=== PATIENT | male | born 1965 | race American Indian/Alaskan Native ===

== ENCOUNTER 2019-08-20 17:32 | Emergency (ER) | payer MEDICARE ==
[2019-08-20 17:48] VITALS: BP 145/79
[2019-08-20 18:49] LABS: Basophils % (Auto) 0.4 % (0.0-1.8); Eosinophils # (Auto) 0.1 K/mm3 (0.0-0.4); Eosinophils % (Auto) 0.5 % (0.0-4.3); Hematocrit 37.5 % (35.5-45.6); Hemoglobin 12.7 gm/dl (11.8-15.2); Lymphocytes % (Auto) 15.6 % (13.4-35.0); Mean Corpuscular HGB Conc 34 % (32-34); Mean Corpuscular Volume 86 fl (84-94); Monocytes # (Auto) 1.1 K/mm3 (0.0-0.8); Monocytes % (Auto) 8.4 % (0.0-7.3); Platelet Count 448 K/mm3 (140-440); Red Blood Count 4.34 M/mm3 (3.65-5.03); Red Cell Distribution Width 14.6 % (13.2-15.2)
[2019-08-20 19:09] LABS: BUN/Creatinine Ratio 21; Blood Urea Nitrogen 21 mg/dL (9-20); Calcium 8.9 mg/dL (8.4-10.2); Hemolysis Index 1
== END 2019-08-20 21:00 | disposition left against medical advice (07) ==
LOC: ED 17:32
DX: F20.9 Schizophrenia, unspecified (principal); Z53.21 Procedure and treatment not carried out due to patient leaving prior to being seen by health care provider
CPT/HCPCS: 36415; 80048; 80320; 85025; G0480

== ENCOUNTER 2019-08-21 03:45 | Emergency (ER) | payer MEDICARE ==
[2019-08-21] MEDS ORDERED: ZIPRASIDONE MESYLATE 20 MG VIAL IM ONE ×2 (03:50→04:01)
[2019-08-21] MEDS ORDERED: LORazepam 2 MG/ML VIAL ONE (04:00)
[2019-08-21] MEDS ORDERED: LORazepam 2 MG/ML VIAL IV ONE (04:28)
[2019-08-21 05:33] LABS: Basophils % (Auto) 0.4 % (0.0-1.8); Eosinophils # (Auto) 0.1 K/mm3 (0.0-0.4); Eosinophils % (Auto) 0.9 % (0.0-4.3); Hematocrit 35.1 % (35.5-45.6); Lymphocytes # (Auto) 1.5 K/mm3 (1.2-5.4); Lymphocytes % (Auto) 15.6 % (13.4-35.0); Mean Corpuscular HGB Conc 34 % (32-34); Mean Corpuscular Volume 86 fl (84-94); Monocytes # (Auto) 0.6 K/mm3 (0.0-0.8); Monocytes % (Auto) 6.5 % (0.0-7.3); Platelet Count 392 K/mm3 (140-440); Red Blood Count 4.06 M/mm3 (3.65-5.03); Red Cell Distribution Width 14.9 % (13.2-15.2)
--- NOTE | 2019-08-21 05:43 | Emergency Department Report ---
<MARYANN HOFFMAN - Last Filed: 08/21/19 05:44> ED Psych HPI - General Chief Complaint: Altered Mental Status Stated Complaint: MANIC/BIPOLAR Time Seen by Provider: 08/21/19 04:00 Source: police Mode of arrival: Stretcher - History of Present Illness Initial Comments: 54 yo M w/ hx of schizophrenia presents to ED via EMS and PD. Patient was picked up from his sister's home. Called [phone] b/c he broke the window at her home. Pt is verbally aggressive, threatening, yelling at staff. Unable to get any history from pt. Pt requires medical restraints. Pt was brought in yesterday by his sister. It was reported at triage that pt has been off of his psych meds for several days. -: unknown History of same: Yes Improves With: medication Worsens With: other (med noncompliance) Treatments Prior to Arrival: none - Related Data Previous Rx's Medication Instructions Recorded Last Taken Type Nitrofurantoin [place]/M-Cryst 100 mg PO Q12HR #13 capsule 08/21/19 Unknown Rx [Macrobid CAP] Allergies Allergy/AdvReac Type Severity Reaction Status Date / Time No Known Allergies Allergy Verified 08/21/19 04:09 ED Review of Systems Comment: Unobtainable due to pts medical conditions ED Past Medical Hx - Past Medical History Previous Medical History?: Yes Hx Psychiatric Treatment: Yes (Schizophrenia) Additional medical history: unable to obtain further info, due to current mental status - Surgical History Past Surgical History?: Yes Additional Surgical History: unable to obtain info due to current mental status - Social History Smoking Status: Unknown if ever smoked - Medications Home Medications: Home Medications Medication Instructions Recorded Confirmed Last Taken Type Nitrofurantoin [place]/M-Cryst 100 mg PO Q12HR #13 capsule 08/21/19 08/22/19 Unknown Rx [Macrobid CAP] ED Physical Exam - General Limitations: Altered Mental Status, Physical Limitation General appearance: alert - Head Head exam: Present: atraumatic, normocephalic - Eye Eye exam: Present: normal appearance - ENT ENT exam: Present: mucous membranes moist - Neck Neck exam: Present: normal inspection - Respiratory Respiratory exam: Present: normal lung sounds bilaterally. Absent: respiratory distress - Cardiovascular Cardiovascular Exam: Present: normal rhythm, tachycardia - GI/Abdominal GI/Abdominal exam: Present: soft. Absent: distended - Extremities Exam Extremities exam: Present: other (bilateral lower extremity amputations) - Neurological Exam Neurological exam: Present: alert, other (moves all extremities) - Psychiatric Psychiatric exam: Present: agitated, manic - Skin Skin exam: Present: warm, dry, intact, normal color ED Medical Decision Making - Lab Data Result diagrams: 08/21/19 05:03 ED Disposition Clinical Impression: Psychosis, Medical clearance for psychiatric admission Disposition: [id number] PSY HOSP/PSY UNIT Condition: Stable Additional Instructions: Take the antibiotics as directed. Cultures were sent, and results will be available in the next 3-5 days. Have a primary care doctor contact the medical records department to obtain culture results. Follow up with a medical physician within 7-10 days. Avoid strenuous heavy lifting, strenuous physical activities. Drink 4-6 cups of water per day. Return to emergency room right away with , worsened or different symptoms, or symptoms not present on the initial emergency room evaluation. Prescriptions: Nitrofurantoin [place]/M-Cryst [Macrobid CAP] 100 mg PO Q12HR #13 capsule Referrals: PRIMARY CARE, [Primary Care Provider] - 3-5 Days [facility] [Provider Group] - 3-5 Days [facility] [Provider Group] - 3-5 Days <CHRIS CARRERO - Last Filed: 08/26/19 21:25> ED Review of Systems ROS: Stated complaint: MANIC/BIPOLAR Other details as noted in HPI ED Course Vital Signs 08/21/19 08/21/19 08/21/19 05:21 08:00 12:08 Temperature 98.1 F 98.7 F 97.7 F Pulse Rate 128 H 98 H 105 H Respiratory 19 18 18 Rate Blood Pressure 104/65 107/73 124/83 [Left] O2 Sat by Pulse 97 98 95 Oximetry 08/21/19 08/21/19 16:28 20:57 Temperature 97.9 F Pulse Rate 115 H 106 H Respiratory 20 16 Rate Blood Pressure 122/91 131/84 [Left] O2 Sat by Pulse 98 98 Oximetry - Reevaluation(s) Reevaluation #1: 08/21/19 22:53 Patient really observed multiple times. The patient is not in any acute distress. Initial chemistry reviewed and appreciated. Repeat basic metabolic panel ordered. CK reviewed and appreciated. Patient given 3 L of IV fluid, CK decreased. Patient observed in the ER for hours without clinical decompensation. He has been accepted by the psychiatrist. He does not have an immediate medical contraindication to psychiatric admission, evaluation, consultation and placement at this time. ED Medical Decision Making - Lab Data Result diagrams: 08/21/19 05:03 08/21/19 18:01 Vital Signs 08/21/19 08/21/19 08/21/19 05:21 08:00 12:08 Temperature 98.1 F 98.7 F 97.7 F Pulse Rate 128 H 98 H 105 H Respiratory 19 18 18 Rate Blood Pressure 104/65 107/73 124/83 [Left] O2 Sat by Pulse 97 98 95 Oximetry 08/21/19 08/21/19 16:28 20:57 Temperature 97.9 F Pulse Rate 115 H 106 H Respiratory 20 16 Rate Blood Pressure 122/91 131/84 [Left] O2 Sat by Pulse 98 98 Oximetry Lab Results 08/21/19 08/21/19 08/21/19 Range/Units 05:03 05:03 05:03 WBC 9.8 (4.5-11.0) K/mm3 RBC 4.06 (3.65-5.03) M/mm3 Hgb 12.0 (11.8-15.2) gm/dl Hct 35.1 L (35.5-45.6) % MCV 86 (84-94) fl MCH 30 (28-32) pg MCHC 34 (32-34) % RDW 14.9 (13.2-15.2) % Plt Count 392 (140-440) K/mm3 Lymph % (Auto) 15.6 (13.4-35.0) % [place] % (Auto) 6.5 (0.0-7.3) % Eos % (Auto) 0.9 (0.0-4.3) % Baso % (Auto) 0.4 (0.0-1.8) % Lymph # 1.5 (1.2-5.4) K/mm3 [place] # 0.6 (0.0-0.8) K/mm3 Eos # 0.1 (0.0-0.4) K/mm3 Baso # 0.0 (0.0-0.1) K/mm3 Seg Neutrophils % 76.6 H (40.0-70.0) % Seg Neutrophils # 7.5 (1.8-7.7) K/mm3 Sodium 134 L (137-145) mmol/L Potassium 3.2 L (3.6-5.0) mmol/L Chloride 97.9 L (98-107) mmol/L Carbon Dioxide 17 L (22-30) mmol/L Anion Gap 22 mmol/L BUN 14 (9-20) mg/dL Creatinine 0.7 L (0.8-1.5) mg/dL Estimated GFR > 60 ml/min BUN/Creatinine Ratio 20 % Glucose 83 (75-100) mg/dL Calcium 8.6 (8.4-10.2) mg/dL Magnesium (1.7-2.3) mg/dL Total Creatine Kinase (55-170) units/L Urine Color (Yellow) Urine Turbidity (Clear) Urine pH (5.0-7.0) Ur Specific [place] (1.003-1.030) Urine Protein (Negative) mg/dL Urine Glucose (UA) (Negative) mg/dL Urine Ketones (Negative) mg/dL Urine Blood (Negative) Urine Nitrite (Negative) Urine Bilirubin (Negative) Urine Urobilinogen (<2.0) mg/dL Ur Leukocyte Esterase (Negative) Urine WBC (Auto) (0.0-6.0) /HPF Urine RBC (Auto) (0.0-6.0) /HPF U Epithel Cells (Auto) (0-13.0) /HPF Urine Bacteria (Auto) (Negative) /HPF Urine Mucus /HPF Salicylates < 0.3 L (2.8-20.0) mg/dL Urine Opiates Screen Urine Methadone Screen Acetaminophen (10.0-30.0) ug/mL Ur Barbiturates Screen Ur Phencyclidine Scrn Ur Amphetamines Screen U Benzodiazepines Scrn Urine Cocaine Screen U Marijuana (THC) Screen Drugs of Abuse Note Plasma/Serum Alcohol (0-0.07) % 08/21/19 08/21/19 08/21/19 Range/Units 05:03 05:03 16:18 WBC (4.5-11.0) K/mm3 RBC (3.65-5.03) M/mm3 Hgb (11.8-15.2) gm/dl Hct (35.5-45.6) % MCV (84-94) fl MCH (28-32) pg MCHC (32-34) % RDW (13.2-15.2) % Plt Count (140-440) K/mm3 Lymph % (Auto) (13.4-35.0) % [place] % (Auto) (0.0-7.3) % Eos % (Auto) (0.0-4.3) % Baso % (Auto) (0.0-1.8) % Lymph # (1.2-5.4) K/mm3 [place] # (0.0-0.8) K/mm3 Eos # (0.0-0.4) K/mm3 Baso # (0.0-0.1) K/mm3 Seg Neutrophils % (40.0-70.0) % Seg Neutrophils # (1.8-7.7) K/mm3 Sodium (137-145) mmol/L Potassium (3.6-5.0) mmol/L Chloride (98-107) mmol/L Carbon Dioxide (22-30) mmol/L Anion Gap mmol/L BUN (9-20) mg/dL Creatinine (0.8-1.5) mg/dL Estimated GFR ml/min BUN/Creatinine Ratio % Glucose (75-100) mg/dL Calcium (8.4-10.2) mg/dL Magnesium (1.7-2.3) mg/dL Total Creatine Kinase (55-170) units/L Urine Color Lina (Yellow) Urine Turbidity Cloudy (Clear) Urine pH 6.0 (5.0-7.0) Ur Specific [place] 1.019 (1.003-1.030) Urine Protein <15 mg/dl (Negative) mg/dL Urine Glucose (UA) Neg (Negative) mg/dL Urine Ketones 20 (Negative) mg/dL Urine Blood Mod (Negative) Urine Nitrite Neg (Negative) Urine Bilirubin Neg (Negative) Urine Urobilinogen 2.0 (<2.0) mg/dL Ur Leukocyte Esterase Neg (Negative) Urine WBC (Auto) 19.0 H (0.0-6.0) /HPF Urine RBC (Auto) 25.0 (0.0-6.0) /HPF U Epithel Cells (Auto) < 1.0 (0-13.0) /HPF Urine Bacteria (Auto) 3+ (Negative) /HPF Urine Mucus Few /HPF Salicylates (2.8-20.0) mg/dL Urine Opiates Screen Urine Methadone Screen Acetaminophen < 5.0 L (10.0-30.0) ug/mL Ur Barbiturates Screen Ur Phencyclidine Scrn Ur Amphetamines Screen U Benzodiazepines Scrn Urine Cocaine Screen U Marijuana (THC) Screen Drugs of Abuse Note Plasma/Serum Alcohol < 0.01 (0-0.07) % 08/21/19 08/21/19 08/21/19 Range/Units 16:18 18:01 21:55 WBC (4.5-11.0) K/mm3 RBC (3.65-5.03) M/mm3 Hgb (11.8-15.2) gm/dl Hct (35.5-45.6) % MCV (84-94) fl MCH (28-32) pg MCHC (32-34) % RDW (13.2-15.2) % Plt Count (140-440) K/mm3 Lymph % (Auto) (13.4-35.0) % [place] % (Auto) (0.0-7.3) % Eos % (Auto) (0.0-4.3) % Baso % (Auto) (0.0-1.8) % Lymph # (1.2-5.4) K/mm3 [place] # (0.0-0.8) K/mm3 Eos # (0.0-0.4) K/mm3 Baso # (0.0-0.1) K/mm3 Seg Neutrophils % (40.0-70.0) % Seg Neutrophils # (1.8-7.7) K/mm3 Sodium 133 L (137-145) mmol/L Potassium 3.8 (3.6-5.0) mmol/L Chloride 95.1 L (98-107) mmol/L Carbon Dioxide 22 (22-30) mmol/L Anion Gap 20 mmol/L BUN 16 (9-20) mg/dL Creatinine 0.8 (0.8-1.5) mg/dL Estimated GFR > 60 ml/min BUN/Creatinine Ratio 20 % Glucose 135 H (75-100) mg/dL Calcium 9.3 (8.4-10.2) mg/dL Magnesium 2.00 (1.7-2.3) mg/dL Total Creatine Kinase 3060 H 2340 H (55-170) units/L Urine Color (Yellow) Urine Turbidity (Clear) Urine pH (5.0-7.0) Ur Specific [place] (1.003-1.030) Urine Protein (Negative) mg/dL Urine Glucose (UA) (Negative) mg/dL Urine Ketones (Negative) mg/dL Urine Blood (Negative) Urine Nitrite (Negative) Urine Bilirubin (Negative) Urine Urobilinogen (<2.0) mg/dL Ur Leukocyte Esterase (Negative) Urine WBC (Auto) (0.0-6.0) /HPF Urine RBC (Auto) (0.0-6.0) /HPF U Epithel Cells (Auto) (0-13.0) /HPF Urine Bacteria (Auto) (Negative) /HPF Urine Mucus /HPF Salicylates (2.8-20.0) mg/dL Urine Opiates Screen Presumptive negative Urine Methadone Screen Presumptive negative Acetaminophen (10.0-30.0) ug/mL Ur Barbiturates Screen Presumptive negative Ur Phencyclidine Scrn Presumptive negative Ur Amphetamines Screen Presumptive negative U Benzodiazepines Scrn Presumptive negative Urine Cocaine Screen Presumptive negative U Marijuana (THC) Screen Presumptive negative Drugs of Abuse Note Disclamer Plasma/Serum Alcohol (0-0.07) % Critical care attestation.: If time is entered above; I have spent that time in minutes in the direct care of this critically ill patient, excluding procedure time. ED Disposition Is pt being admited?: No Does the pt Need Aspirin: No
[2019-08-21 05:52] LABS: BUN/Creatinine Ratio 20; Blood Urea Nitrogen 14 mg/dL (9-20); Calcium 8.6 mg/dL (8.4-10.2); Hemolysis Index 4
[2019-08-21 16:41] LABS: Amphetamine Screen,Urine PRESUMPTIVE NEGATIVE; Benzodiazepines Screen,Urine PRESUMPTIVE NEGATIVE; Cannabinoid Screen,Urine PRESUMPTIVE NEGATIVE; Cocaine Screen,Urine PRESUMPTIVE NEGATIVE; Methadone Screen,Urine PRESUMPTIVE NEGATIVE; Opiate Screen,Urine PRESUMPTIVE NEGATIVE
[2019-08-21 16:45] LABS: Bacteria,Urine 3+ /HPF (Negative); Bilirubin,Urine NEG (Negative); Blood,Urine MOD (Negative); Color,Urine Amber (Yellow); Mucus,Urine FEW /HPF; Protein,Urine <15 mg/dL mg/dL (Negative)
[2019-08-21] MEDS ORDERED: POTASSIUM CHLORIDE ER 20 MEQ TAB PO ONE (17:49)
[2019-08-21] MEDS ORDERED: MAGNESIUM OXIDE 400 MG TAB PO STA (17:55)
[2019-08-21 18:38] LABS: BUN/Creatinine Ratio 20; Blood Urea Nitrogen 16 mg/dL (9-20); Calcium 9.3 mg/dL (8.4-10.2); Hemolysis Index 10
[2019-08-21] MEDS ORDERED: SODIUM CHLORIDE 0.9% 1000 ML 2,000 ML IV ONE (19:00)
[2019-08-21] MEDS ORDERED: SODIUM CHLORIDE 0.9% 1000 ML 1,000 ML IV ONE (19:00)
[2019-08-21 20:59] VITALS: BP 131/84
[2019-08-21] MEDS ORDERED: NITROFURANTOIN MONOHYD/M-CRYST 100 MG CAP PO SCH (22:00)
== END 2019-08-21 23:19 ==
LOC: ED 03:45 → EEVIPCON 03:45 → ED 23:19
DX: F20.89 Other schizophrenia (principal); R41.82 Altered mental status, unspecified; Z79.899 Other long term (current) drug therapy
CPT/HCPCS: 36415; 80048; 80307; 81001; 82550; 83735; 85025; 87086; 93005; 93010; 96361; 96372; 96374; 99285; J2060; J3486; J7030; 80320; G0480

== ENCOUNTER 2019-08-21 17:28 | Inpatient (IN) | payer MEDICARE ==
[2019-08-21] MEDS ORDERED: LORazepam 2 MG/ML VIAL IM PRN (18:31)
[2019-08-21] MEDS ORDERED: traZODone 50 MG TAB PO PRN (18:31)
[2019-08-22] MEDS: HALOPERIDOL LACTATE 5 MG/1 ML INJ IM PRN ×2 (00:30→10:51)
--- NOTE | 2019-08-22 07:24 | Consultation ---
History of Present Illness - Reason for Consult Consult date: 08/22/19 Reason for consult: psychiatric assessment - History of Present Psychiatric Illness mr costa is a 54 year old male. The patient was in his wheelchair in the day room,patient noted with STEVEN, the patient is alert and oriented 1, the patient is appropriately dressed, patient maintain eye contact. The patient's speech is noted delayed. When asked if he knew why he was here, the patient states," where I was staying someone eat my cereal, I became mad and aggressive and called the police". 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 The patient denies visual or auditory hallucination. The patient denies that he is depressed. 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 He does report eating and sleeping well. The patient is very disorganized with irritability.the patient reported that he was diagnosed with schizophrenia and depression in the past but he doesn't take medication. He states," I was given Haldol and Seroquel but I don't take them anymore'. PAST PSYCHIATRIC HISTORY: Diagnoses: schizoaffective disorder, bipolar type Suicide attempts or Self-harm behavior:no Prior psychiatric hospitalizations: yes Substance Abuse history:no Previous psychiatric medications tried: haldol, seroquel Outpatient treatment: yes PAST MEDICAL HISTORY: BKA Family Psychiatric History None reported or documented SOCIAL HISTORY Marital Status: single Living Arrangements: skilled nursing Employment Status: unemployed Access to guns/weapons:denies Education: dont know History of Abuse:denies Legal History:no ROS: Constitutional: Negative for weight loss ENT: Negative for stridor Respiratory: Negative for cough or hemoptysis All other systems reviewed and are negative MENTAL STATUS General Appearance and Behavior: age appropriate, good eye contact, cooperative with questioning and polite Cooperation: Cooperative Psychomotor Behavior: within normal limits Mood: OK Affect and affective range: Congruent with stated mood Thought Process: tangential Thought Content: delusional Speech: low Intellectual Functioning Average Suicidal Ideation: Denies SI Homicidal Ideation: Denies HI Impulse Control: intact Insight and Judgment: poor Memory: forgetful Attention: Normal Orientation: alert and oriented x 1 Diagnosis :schizoaffective disorder bipolar type Treatment Plan start cogentin 0.5mg bid start haldol 0.5mg bid start [id number] qhs Patient will be admitted for inpatient psychiatric evaluation, medication adjustment and close monitoring The patient's behavior, mood, sleep and appetite will be closely monitored. Patient will be enrolled in individual and group therapeutic sessions and encouraged to attend. Patient will be provided with a safe and structured environment. Patient's physical health needs will be addressed by the Hospitalist. Hospitalist Consulted Labs including CBC, CMP, Lipid profile and Hemoglobin A1C ordered Social Assessment will be completed and the Welt Stitch Cleaner will work with patient and family to ensure a suitable and safe disposition Medication adjustment will be made as clinically indicated Usual Wellness Caodaism/Preservation: - Start Trazodone 50 mg po QHS & 50 mg po QHS PRN between 10 PM & 2 AM for insomnia - Start [place]-3 for brain health, reduce impulsivity, and as adjunctive treatment for mood disorder, continue upon discharge given overall benefits. The patient agreed on the treatment plan, understood the risk, benefit, alternative treatment, potential consequence of no treatment, and gave Medications and Allergies Allergies Allergy/AdvReac Type Severity Reaction Status Date / Time No Known Allergies Allergy Verified 08/21/19 04:09 Home Medications Medication Instructions Recorded Confirmed Last Taken Type Nitrofurantoin [place]/M-Cryst 100 mg PO Q12HR #13 capsule 08/21/19 08/22/19 Unknown Rx [Macrobid CAP] Active Meds: Active Medications Haloperidol Lactate (Haldol) 5 mg IM Q6H PRN PRN Reason: Agitation Last Admin: 08/22/19 00:30 Dose: 5 mg Documented by: Lorazepam (Ativan) 2 mg IM Q6H PRN PRN Reason: Agitation Last Admin: 08/22/19 00:30 Dose: 2 mg Documented by: Trazodone HCl (Desyrel) 50 mg PO QHS PRN PRN Reason: insomnia Mental Status Exam - Vital signs Last Vital Signs Temp 98.6 F 08/21/19 23:21 Pulse 108 H 08/21/19 23:21 Resp 18 08/21/19 23:21 BP 136/96 08/21/19 23:21 Pulse Ox 99 08/21/19 23:21 Results All other labs normal.
[2019-08-22] MEDS ORDERED: HALOPERIDOL 5 MG TAB PO ONE (09:58)
--- NOTE | 2019-08-22 10:58 | History and Physical Report ---
GP History & Physical - History of Present Illness Date of admission: 08/21/19 Date of Examination: 08/22/19 Reason for Admission: Danger to others, Severe anxiety/depression, Unable to care for self History of Present Illness: mr russ is a 54 year old male. The patient was in his wheelchair in the day room,patient noted with BKStephanie, the patient is alert and oriented 1, the patient is appropriately dressed, patient maintain eye contact. The patient's speech is noted delayed. When asked if he knew why he was here, the patient states," where I was staying someone eat my cereal, I became mad and aggressive and called the police". 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 The patient denies visual or auditory hallucination. The patient denies that he is depressed. 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 He does report eating and sleeping well. The patient is very disorganized with irritability.the patient reported that he was diagnosed with schizophrenia and depression in the past but he doesn't take medication. He states," I was given Haldol and Seroquel but I don't take them anymore'. PAST PSYCHIATRIC HISTORY: Diagnoses: schizoaffective disorder, bipolar type Suicide attempts or Self-harm behavior:no Prior psychiatric hospitalizations: yes Substance Abuse history:no Previous psychiatric medications tried: haldol, seroquel Outpatient treatment: yes PAST MEDICAL HISTORY: BKA Family Psychiatric History None reported or documented SOCIAL HISTORY Marital Status: single Living Arrangements: halfway Employment Status: unemployed Access to guns/weapons:denies Education: dont know History of Abuse:denies Legal History:no ROS: Constitutional: Negative for weight loss ENT: Negative for stridor Respiratory: Negative for cough or hemoptysis All other systems reviewed and are negative MENTAL STATUS General Appearance and Behavior: age appropriate, good eye contact, cooperative with questioning and polite Cooperation: Cooperative Psychomotor Behavior: within normal limits Mood: OK Affect and affective range: Congruent with stated mood Thought Process: tangential Thought Content: delusional Speech: low Intellectual Functioning Average Suicidal Ideation: Denies SI Homicidal Ideation: Denies HI Impulse Control: intact Insight and Judgment: poor Memory: forgetful Attention: Normal Orientation: alert and oriented x 1 Diagnosis :schizoaffective disorder bipolar type Treatment Plan start cogentin 0.5mg bid start haldol 0.5mg bid start [id number] qhs Patient will be admitted for inpatient psychiatric evaluation, medication adjustment and close monitoring The patient's behavior, mood, sleep and appetite will be closely monitored. Patient will be enrolled in individual and group therapeutic sessions and enco uraged to attend. Patient will be provided with a safe and structured environment. Patient's physical health needs will be addressed by the Hospitalist. Hospitalist Consulted Labs including CBC, CMP, Lipid profile and Hemoglobin A1C ordered Social Assessment will be completed and the Group Underwriter will work with patient and family to ensure a suitable and safe disposition Medication adjustment will be made as clinically indicated Usual Wellness Adventist/Preservation: - Start Trazodone 50 mg po QHS & 50 mg po QHS PRN between 10 PM & 2 AM for insomnia - Start [place]-3 for brain health, reduce impulsivity, and as adjunctive treatment for mood disorder, continue upon discharge given overall benefits. The patient agreed on the treatment plan, understood the risk, benefit, alternative treatment, potential consequence of no treatment, and gave This is an acknowledgement statement that FRANKI RUSS is a 54 year old M who requires inpatient psychiatric admission for treatment which could reasonably be expected to improve the patient's condition for aggression, combativenesses, and delusion. Estimated period of time patient will need to remain in the hospital: [7 ] Plan for post-hospital care: [outpatient Legal Status: Involuntary Reaction to Hospitalization: Accepting Medications and Allergies Allergies Allergy/AdvReac Type Severity Reaction Status Date / Time No Known Allergies Allergy Verified 08/21/19 04:09 Home Medications Medication Instructions Recorded Confirmed Last Taken Type Nitrofurantoin [place]/M-Cryst 100 mg PO Q12HR #13 capsule 08/21/19 08/22/19 Unknown Rx [Macrobid CAP] Active Meds: Active Medications Benztropine Mesylate (Cogentin) 0.5 mg PO BID UMA Fish Oil (Fish Oil) 2,000 mg PO BID UMA Haloperidol (Haldol) 0.5 mg PO BID UMA Haloperidol Lactate (Haldol) 5 mg IM Q6H PRN PRN Reason: Agitation Last Admin: 08/22/19 10:51 Dose: 5 mg Documented by: Lorazepam (Ativan) 2 mg IM Q6H PRN PRN Reason: Agitation Last Admin: 08/22/19 00:30 Dose: 2 mg Documented by: Quetiapine Fumarate (Seroquel) 200 mg PO QHS UMA Trazodone HCl (Desyrel) 50 mg PO QHS PRN PRN Reason: insomnia Results - Results Labs/Vitals: Last Vital Signs Temp 98.6 F 08/21/19 23:21 Pulse 108 H 08/21/19 23:21 Resp 18 08/21/19 23:21 BP 136/96 08/21/19 23:21 Pulse Ox 99 08/21/19 23:21 Physical Examination - Constitutional Vitals: Vital Signs Temp Pulse Resp BP Pulse Ox 98.6 F 108 H 18 136/96 99 08/21/19 23:21 08/21/19 23:21 08/21/19 23:21 08/21/19 23:21 08/21/19 23:21 Temperature -Last 24 Hours Temperature 98.6 F Mental Status Exam - Vital signs Last Vital Signs Temp 98.6 F 08/21/19 23:21 Pulse 108 H 08/21/19 23:21 Resp 18 08/21/19 23:21 BP 136/96 08/21/19 23:21 Pulse Ox 99 08/21/19 23:21 Physician Certification - Certification Statement Physician Certification Statement: This is an acknowledgement statement that FRANKI RUSS is a 54 year old M who requires inpatient psychiatric admission for treatment which could reasonably be expected to improve the patient's condition for Estimated period of time patient will need to remain in the hospital: [7 ] Plan for post-hospital care: [outpatient ]
[2019-08-22 12:09] LABS: Basophils # (Auto) 0.1 K/mm3 (0.0-0.1); Eosinophils # (Auto) 0.3 K/mm3 (0.0-0.4); Eosinophils % (Auto) 4.3 % (0.0-4.3); Hematocrit 32.4 % (35.5-45.6); Hemoglobin 11.2 gm/dl (11.8-15.2); Lymphocytes # (Auto) 1.6 K/mm3 (1.2-5.4); Lymphocytes % (Auto) 20.8 % (13.4-35.0); Mean Corpuscular HGB Conc 34 % (32-34); Mean Corpuscular Volume 88 fl (84-94); Monocytes # (Auto) 0.8 K/mm3 (0.0-0.8); Monocytes % (Auto) 9.8 % (0.0-7.3); Platelet Count 374 K/mm3 (140-440); Red Blood Count 3.71 M/mm3 (3.65-5.03); Red Cell Distribution Width 14.8 % (13.2-15.2)
[2019-08-22 12:29] LABS: Alanine Aminotransferase 54 units/L (7-56); Albumin 3.7 g/dL (3.9-5); BUN/Creatinine Ratio 14; Blood Urea Nitrogen 7 mg/dL (9-20); Calcium 8.4 mg/dL (8.4-10.2); Chol/HDL Ratio 2.13 %; HDL Cholesterol 43 mg/dL (40-59); Hemolysis Index 22; LDL Cholesterol,Direct 39 mg/dL (50-130)
--- NOTE | 2019-08-22 14:02 | Consultation ---
History of Present Illness - Reason for Consult Consult date: 08/22/19 Hypertension Requesting physician: PABLITO COLON - History of Present Illness Patient is a 54-year-old male with past medical history of hypertension, anemia, bilateral lower extremity amputation, secondary to infection per the patient and also known history of schizoaffective disorder bipolar type presented to the facility with aggressive behavior requiring police to be called and patient sent to our facility. At the time of my examination he denies any chest pain nausea vomiting or diarrhea. He appears to be calm and collected. He does not display any disorganized or irritability thoughts at this time although further psychiatric history can be elicited from the psychiatric documentation. Patient was noted to have pyuria in his urine but denies any urinary symptoms such as dysuria frequency or urgency. Past History Past Medical History: COPD, hypertension, hyperlipidemia Past Surgical History: Other (Bilateral lower extremity amputation) Social history: no significant social history Family history: no significant family history Medications and Allergies Allergies Allergy/AdvReac Type Severity Reaction Status Date / Time No Known Allergies Allergy Verified 08/21/19 04:09 Home Medications Medication Instructions Recorded Confirmed Last Taken Type Nitrofurantoin [place]/M-Cryst 100 mg PO Q12HR #13 capsule 08/21/19 08/22/19 Unknown Rx [Macrobid CAP] Active Meds: Active Medications Benztropine Mesylate (Cogentin) 0.5 mg PO BID [facility] Fish Oil (Fish Oil) 2,000 mg PO BID [facility] Haloperidol (Haldol) 0.5 mg PO BID [facility] Haloperidol Lactate (Haldol) 5 mg IM Q6H PRN PRN Reason: Agitation Last Admin: 08/22/19 10:51 Dose: 5 mg Documented by: Lorazepam (Ativan) 2 mg IM Q6H PRN PRN Reason: Agitation Last Admin: 08/22/19 00:30 Dose: 2 mg Documented by: Quetiapine Fumarate (Seroquel) 200 mg PO QHS [facility] Trazodone HCl (Desyrel) 50 mg PO QHS PRN PRN Reason: insomnia Review of Systems All systems: negative Constitutional: weight loss, no fever, no sweats Ears, nose, mouth and throat: no ear discharge, no nose pain, no sinus pressure Cardiovascular: no orthopnea, no rapid/irregular heart beat, no syncope, no cari dication, no phlebitis, no high blood pressure, no decreased exercise tolerance, no other Respiratory: no cough with sputum, no hemoptysis, no shortness of breath, no dyspnea on exertion, no wheezing, no pain, no snoring, no respiratory infections Gastrointestinal: no nausea, no vomiting, no change in bowel habits, no coffee ground emesis, no melena, no loss of appetite, no early satiety, no indigestion, no jaundice, no dyspepsia/bloating, no early satiety Genitourinary Male: no hematuria, no flank pain, no urinary frequency, no urinary hesitancy, no incontinence, no decreased libido, no testicular pain, no difficulties fathering child Musculoskeletal: no neck pain, no low back pain, no leg numbness/tingling, no hot joints, no muscle weakness, no myalgias, no fractures, no loss of height Integumentary: no rash, no pruritis, no redness, no wounds, no jaundice, no bullae, no darkening of skin, no depigmentation, no brittle nails, no hirsutism Neurological: no transient paralysis, no parathesias, no vertigo, no aphasia, no motor disturbance, no loss of vision Psychiatric: depression, no anxiety, no memory loss, no sleep disturbances, no insomnia, no anhedonia, no anxiety attacks Exam - Physical Exam Narrative exam: VITAL SIGNS: Reviewed. GENERAL: The patient appears normally developed, cachexia vital signs as documented. HEAD: No signs of head trauma. EYES: Pupils are equal. Extraocular motions intact. EARS: Hearing grossly intact. MOUTH: Oropharynx is normal. NECK: No adenopathy, no JVD. CHEST: Chest with clear breath sounds bilaterally. No wheezes, rales, or rhonchi. CARDIAC: Regular rate and rhythm. S1 and S2, without murmurs, gallops, or rubs. VASCULAR: No Edema. Peripheral pulses normal and equal in all extremities. ABDOMEN: Soft, non tender and non distended. No rebound or guarding, and no masses palpated. Bowel Sounds normal. MUSCULOSKELETAL: BKA. Stump intact NEUROLOGIC EXAM: Alert and oriented x 3 No focal sensory or strength deficits. Speech normal. Follows commands. PSYCHIATRIC: Mood normal. SKIN: detial exam as documented in skin assessment - Constitutional Vitals: Temp Pulse Resp BP Pulse Ox 98.6 F 108 H 18 136/96 99 08/21/19 23:21 08/21/19 23:21 08/21/19 23:21 08/21/19 23:21 08/21/19 23:21 Results - Labs CBC & Chem 7: 08/22/19 11:37 08/22/19 11:37 Labs: Abnormal lab results 08/22/19 08/22/19 Range/Units 11:37 11:37 Hgb 11.2 L (11.8-15.2) gm/dl Hct 32.4 L (35.5-45.6) % [place] % (Auto) 9.8 H (0.0-7.3) % Sodium 130 L (137-145) mmol/L Chloride 97.4 L (98-107) mmol/L Carbon Dioxide 21 L (22-30) mmol/L BUN 7 L (9-20) mg/dL Creatinine 0.5 L (0.8-1.5) mg/dL AST 110 H (5-40) units/L Total Protein 5.6 L (6.3-8.2) g/dL Albumin 3.7 L (3.9-5) g/dL LDL Cholesterol Direct 39 L (50-130) mg/dL Assessment and Plan Patient is a 54-year-old male with past medical history of hypertension, anemia, bilateral lower extremity amputation, secondary to infection per the patient and also known history of schizoaffective disorder bipolar type presented to the facility with aggressive behavior requiring police to be called and patient sent to our facility. At the time of my examination he denies any chest pain nausea vomiting or diarrhea. He appears to be calm and collected. He does not display any diso rganized or irritability thoughts at this time although further psychiatric history can be elicited from the psychiatric documentation. Patient was noted to have pyuria in his urine but denies any urinary symptoms such as dysuria frequency or urgency. Hypertension Anemia of chronic disease Hyponatremia Schizoaffective disorder bipolar type Bilateral BKA Plan Continue supportive care. Will monitor H&H intermittently while in-house. Continue blood pressure medications including Norvasc lisinopril and metoprolol. No clinical indication at this time for acute cystitis We will monitor for any development of fever or leukocytosis. Management per psych team DVT and GI prophylaxis
[2019-08-22] MEDS: HALOPERIDOL 1 MG TAB PO SCH (22:27)
[2019-08-22] MEDS: OMEGA-3 FATTY ACIDS/FISH OIL 1 GRAM CAP PO SCH (22:28)
[2019-08-22] MEDS: BENZTROPINE 0.5 MG TAB PO SCH (22:28)
[2019-08-22] MEDS: QUEtiapine 200 MG TAB PO SCH (22:28)
[2019-08-23] MEDS: HALOPERIDOL 1 MG TAB PO SCH ×2 (09:27→22:39)
[2019-08-23] MEDS: OMEGA-3 FATTY ACIDS/FISH OIL 1 GRAM CAP PO SCH ×2 (09:27→22:39)
[2019-08-23] MEDS: BENZTROPINE 0.5 MG TAB PO SCH ×2 (09:28→22:39)
--- NOTE | 2019-08-23 10:43 | Progress Note ---
Subjective Date of service: 08/23/19 Principal diagnosis: Schizoaffective Disorder Subjective Comment: During my interview with the patient this morning, he was in the dayroom, rolling around in his wheelchair. He is confused. He is dressed appropriately. He is difficulty to follow. He says he was admitted for his "prosthetics." He raises his pants legs up and shows me. He denies SI/HI, and says "I work. 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 He also denies hallucinations. He says he "slept good." and his appetite is "fine." He says "I'm good. 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 REVIEW OF SYSTEMS Constitutional: Negative for weight loss ENT: Negative for stridor Respiratory: Negative for cough or hemoptysis All other systems reviewed and are negative MSE Appearance: Awake. Dressed appropriately. Good eye contact Behavior: calm and Cooperative Mood: "good" Affect: congruent Thought Process: tangential Speech: Normal tone and pace Thought Content Suicidal: Denies Homicidal: Denies Hallucinations: Denies Delusions: Denies Consciousness: Alert Cognition/Memory: Limited Insight/Judgment: Limited Diagnoses: Schizoaffective Disorder Treatment Plan Due to the psychiatric conditions and treatment listed in the Assessment and Plan - the patient requires continued hospitalization. Will continue inpatient treatment to allow for medication adjustment and monitoring. Will continue q15 min safety checks. Will encourage the use of environmental modifications and non-pharmacologic approaches for the management of behavioral and psychological symptoms. Medication adjustment made today: No changes made today Will continue current psych medications Monitor for medication side effects. The patient will continue on medications for physical illnesses, and Hospitalist will closely monitor these Continue intensive physical and occupational therapies. Monitor patient's mood, sleep, appetite, and behavior closely. Encourage patient to participate in individual and group therapeutic sessions on the [facility]. Will provide a safe and therapeutic environment for patient. Estimated length of stay 3 days Medications and Allergies Allergies Allergy/AdvReac Type Severity Reaction Status Date / Time No Known Allergies Allergy Verified 08/21/19 04:09 Home Medications Medication Instructions Recorded Confirmed Last Taken Type Nitrofurantoin [place]/M-Cryst 100 mg PO Q12HR #13 capsule 08/21/19 08/22/19 Unknown Rx [Macrobid CAP] Active Meds: Active Medications Benztropine Mesylate (Cogentin) 0.5 mg PO BID [facility] Last Admin: 08/23/19 09:28 Dose: 0.5 mg Documented by: Fish Oil (Fish Oil) 2,000 mg PO BID [facility] Last Admin: 08/23/19 09:27 Dose: 2,000 mg Documented by: Haloperidol (Haldol) 0.5 mg PO BID [facility] Last Admin: 08/23/19 09:27 Dose: 0.5 mg Documented by: Haloperidol Lactate (Haldol) 5 mg IM Q6H PRN PRN Reason: Agitation Last Admin: 08/22/19 10:51 Dose: 5 mg Documented by: Lorazepam (Ativan) 2 mg IM Q6H PRN PRN Reason: Agitation Last Admin: 08/22/19 00:30 Dose: 2 mg Documented by: Quetiapine Fumarate (Seroquel) 200 mg PO QHS [facility] Last Admin: 08/22/19 22:28 Dose: 200 mg Documented by: Trazodone HCl (Desyrel) 50 mg PO QHS PRN PRN Reason: insomnia Results - Results Labs/Vitals: Laboratory Last Values WBC 7.8 K/mm3 (4.5-11.0) 08/22/19 11:37 RBC 3.71 M/mm3 (3.65-5.03) 08/22/19 11:37 Hgb 11.2 gm/dl (11.8-15.2) L 08/22/19 11:37 Hct 32.4 % (35.5-45.6) L 08/22/19 11:37 MCV 88 fl (84-94) 08/22/19 11:37 MCH 30 pg (28-32) 08/22/19 11:37 MCHC 34 % (32-34) 08/22/19 11:37 RDW 14.8 % (13.2-15.2) 08/22/19 11:37 Plt Count 374 K/mm3 (140-440) 08/22/19 11:37 Lymph % (Auto) 20.8 % (13.4-35.0) 08/22/19 11:37 [place] % (Auto) 9.8 % (0.0-7.3) H 08/22/19 11:37 Eos % (Auto) 4.3 % (0.0-4.3) 08/22/19 11:37 Baso % (Auto) 1.0 % (0.0-1.8) 08/22/19 11:37 Lymph # 1.6 K/mm3 (1.2-5.4) 08/22/19 11:37 [place] # 0.8 K/mm3 (0.0-0.8) 08/22/19 11:37 Eos # 0.3 K/mm3 (0.0-0.4) 08/22/19 11:37 Baso # 0.1 K/mm3 (0.0-0.1) 08/22/19 11:37 Seg Neutrophils % 64.1 % (40.0-70.0) 08/22/19 11:37 Seg Neutrophils # 5.0 K/mm3 (1.8-7.7) 08/22/19 11:37 Sodium 130 mmol/L (137-145) L 08/22/19 11:37 Potassium 4.3 mmol/L (3.6-5.0) 08/22/19 11:37 Chloride 97.4 mmol/L (98-107) L 08/22/19 11:37 Carbon Dioxide 21 mmol/L (22-30) L 08/22/19 11:37 Anion Gap 16 mmol/L 08/22/19 11:37 BUN 7 mg/dL (9-20) L 08/22/19 11:37 Creatinine 0.5 mg/dL (0.8-1.5) L 08/22/19 11:37 Estimated GFR > 60 ml/min 08/22/19 11:37 BUN/Creatinine Ratio 14 % 08/22/19 11:37 Glucose 94 mg/dL (75-100) 08/22/19 11:37 Hemoglobin A1c 5.5 % (4-6) 08/22/19 11:37 Calcium 8.4 mg/dL (8.4-10.2) 08/22/19 11:37 Total Bilirubin 0.50 mg/dL (0.1-1.2) 08/22/19 11:37 AST 110 units/L (5-40) H 08/22/19 11:37 ALT 54 units/L (7-56) 08/22/19 11:37 Alkaline Phosphatase 78 units/L (35-129) 08/22/19 11:37 Total Protein 5.6 g/dL (6.3-8.2) L 08/22/19 11:37 Albumin 3.7 g/dL (3.9-5) L 08/22/19 11:37 Albumin/Globulin Ratio 1.9 % 08/22/19 11:37 Triglycerides 65 mg/dL (2-149) 08/22/19 11:37 Cholesterol 92 mg/dL (50-199) 08/22/19 11:37 LDL Cholesterol Direct 39 mg/dL (50-130) L 08/22/19 11:37 HDL Cholesterol 43 mg/dL (40-59) 08/22/19 11:37 Cholesterol/HDL Ratio 2.13 % 08/22/19 11:37 Last Vital Signs Temp 98.1 F 08/22/19 22:00 Pulse 86 08/22/19 22:00 Resp 18 08/22/19 22:00 BP 141/91 08/22/19 22:00 Pulse Ox 97 08/22/19 22:00
[2019-08-23] MEDS: QUEtiapine 200 MG TAB PO SCH (22:39)
--- NOTE | 2019-08-24 08:21 | Progress Note ---
Subjective Date of service: 08/24/19 Principal diagnosis: Schizoaffective Disorder Subjective Comment: During my interview with the patient this morning, the patient was rolling around in his wheelchair in the hallway. He is dressed appropriately. He makes good eye contact. He is a/o x 1. He invades personal space. He rolls up close and asks "did you call my family?" He then shows me his left BKA site and says "it's swollen aint it." The patient says he's here because of "my legs." He says he had to get "new prosthetics." He says he feels "pretty good." He then flexes his arm to show my his muscles. The patient states he slept "pretty good." The patient denies SI/HI or hallucinations of any kind. He states, "I want to go home. Call my sister," as the interview is ending. The patient follows me and rolls up to the area where I'm with another patient before me leading the patient to a private area. REVIEW OF SYSTEMS Constitutional: Negative for weight loss ENT: Negative for stridor Respiratory: Negative for cough or hemoptysis All other systems reviewed and are negative MSE Appearance: Awake. Dressed appropriately. Good eye contact Behavior: calm and Cooperative Mood: "pretty good" Affect: congruent Thought Process: tangential Speech: Normal tone and pace Thought Content Suicidal: Denies Homicidal: Denies Hallucinations: Denies Delusions: Denies Consciousness: Alert Cognition/Memory: Limited Insight/Judgment: Limited Diagnoses: Schizoaffective Disorder Treatment Plan Due to the psychiatric conditions and treatment listed in the Assessment and Plan - the patient requires continued hospitalization. Will continue inpatient treatment to allow for medication adjustment and monitoring. Will continue q15 min safety checks. Will encourage the use of environmental modifications and non-pharmacologic approaches for the management of behavioral and psychological symptoms. Medication adjustment made today: Started Seroquel 25mg po qam Will continue current psych medications Monitor for medication side effects. The patient will continue on medications for physical illnesses, and Hospitalist will closely monitor these Continue intensive physical and occupational therapies. Monitor patient's mood, sleep, appetite, and behavior closely. Encourage patient to participate in individual and group therapeutic sessions on the [facility]. Will provide a safe and therapeutic environment for patient. Estimated length of stay 3 days Medications and Allergies Allergies Allergy/AdvReac Type Severity Reaction Status Date / Time No Known Allergies Allergy Verified 08/21/19 04:09 Home Medications Medication Instructions Recorded Confirmed Last Taken Type Nitrofurantoin [place]/M-Cryst 100 mg PO Q12HR #13 capsule 08/21/19 08/22/19 Unknown Rx [Macrobid CAP] Active Meds: Active Medications Benztropine Mesylate (Cogentin) 0.5 mg PO BID [facility] Last Admin: 08/23/19 22:39 Dose: 0.5 mg Documented by: Fish Oil (Fish Oil) 2,000 mg PO BID [facility] Last Admin: 08/23/19 22:39 Dose: 2,000 mg Documented by: Haloperidol (Haldol) 0.5 mg PO BID [facility] Last Admin: 08/23/19 22:39 Dose: 0.5 mg Documented by: Haloperidol Lactate (Haldol) 5 mg IM Q6H PRN PRN Reason: Agitation Last Admin: 08/22/19 10:51 Dose: 5 mg Documented by: Lorazepam (Ativan) 2 mg IM Q6H PRN PRN Reason: Agitation Last Admin: 08/22/19 00:30 Dose: 2 mg Documented by: Quetiapine Fumarate (Seroquel) 200 mg PO QHS [facility] Last Admin: 08/23/19 22:39 Dose: 200 mg Documented by: Trazodone HCl (Desyrel) 50 mg PO QHS PRN PRN Reason: insomnia Results - Results Labs/Vitals: Laboratory Last Values WBC 7.8 K/mm3 (4.5-11.0) 08/22/19 11:37 RBC 3.71 M/mm3 (3.65-5.03) 08/22/19 11:37 Hgb 11.2 gm/dl (11.8-15.2) L 08/22/19 11:37 Hct 32.4 % (35.5-45.6) L 08/22/19 11:37 MCV 88 fl (84-94) 08/22/19 11:37 MCH 30 pg (28-32) 08/22/19 11:37 MCHC 34 % (32-34) 08/22/19 11:37 RDW 14.8 % (13.2-15.2) 08/22/19 11:37 Plt Count 374 K/mm3 (140-440) 08/22/19 11:37 Lymph % (Auto) 20.8 % (13.4-35.0) 08/22/19 11:37 [place] % (Auto) 9.8 % (0.0-7.3) H 08/22/19 11:37 Eos % (Auto) 4.3 % (0.0-4.3) 08/22/19 11:37 Baso % (Auto) 1.0 % (0.0-1.8) 08/22/19 11:37 Lymph # 1.6 K/mm3 (1.2-5.4) 08/22/19 11:37 [place] # 0.8 K/mm3 (0.0-0.8) 08/22/19 11:37 Eos # 0.3 K/mm3 (0.0-0.4) 08/22/19 11:37 Baso # 0.1 K/mm3 (0.0-0.1) 08/22/19 11:37 Seg Neutrophils % 64.1 % (40.0-70.0) 08/22/19 11:37 Seg Neutrophils # 5.0 K/mm3 (1.8-7.7) 08/22/19 11:37 Sodium 130 mmol/L (137-145) L 08/22/19 11:37 Potassium 4.3 mmol/L (3.6-5.0) 08/22/19 11:37 Chloride 97.4 mmol/L (98-107) L 08/22/19 11:37 Carbon Dioxide 21 mmol/L (22-30) L 08/22/19 11:37 Anion Gap 16 mmol/L 08/22/19 11:37 BUN 7 mg/dL (9-20) L 08/22/19 11:37 Creatinine 0.5 mg/dL (0.8-1.5) L 08/22/19 11:37 Estimated GFR > 60 ml/min 08/22/19 11:37 BUN/Creatinine Ratio 14 % 08/22/19 11:37 Glucose 94 mg/dL (75-100) 08/22/19 11:37 Hemoglobin A1c 5.5 % (4-6) 08/22/19 11:37 Calcium 8.4 mg/dL (8.4-10.2) 08/22/19 11:37 Total Bilirubin 0.50 mg/dL (0.1-1.2) 08/22/19 11:37 AST 110 units/L (5-40) H 08/22/19 11:37 ALT 54 units/L (7-56) 08/22/19 11:37 Alkaline Phosphatase 78 units/L (35-129) 08/22/19 11:37 Total Protein 5.6 g/dL (6.3-8.2) L 08/22/19 11:37 Albumin 3.7 g/dL (3.9-5) L 08/22/19 11:37 Albumin/Globulin Ratio 1.9 % 08/22/19 11:37 Triglycerides 65 mg/dL (2-149) 08/22/19 11:37 Cholesterol 92 mg/dL (50-199) 08/22/19 11:37 LDL Cholesterol Direct 39 mg/dL (50-130) L 08/22/19 11:37 HDL Cholesterol 43 mg/dL (40-59) 08/22/19 11:37 Cholesterol/HDL Ratio 2.13 % 08/22/19 11:37 Last Vital Signs Temp 98.7 F 08/23/19 22:00 Pulse 94 H 08/23/19 22:00 Resp 16 08/23/19 22:00 BP 140/91 08/23/19 22:00 Pulse Ox 98 08/23/19 22:00
[2019-08-24] MEDS: BENZTROPINE 0.5 MG TAB PO SCH ×2 (09:35→22:01)
[2019-08-24] MEDS: OMEGA-3 FATTY ACIDS/FISH OIL 1 GRAM CAP PO SCH ×2 (09:35→22:00)
[2019-08-24] MEDS: HALOPERIDOL 1 MG TAB PO SCH ×2 (09:35→22:00)
[2019-08-24] MEDS ORDERED: QUEtiapine 25 MG TAB PO SCH (10:00)
[2019-08-24] MEDS: QUEtiapine 200 MG TAB PO SCH (22:01)
--- NOTE | 2019-08-25 08:51 | Progress Note ---
Subjective Date of service: 08/25/19 Principal diagnosis: Schizoaffective Disorder Subjective Comment: The patient's medical record was reviewed and the patient's progress was discussed with the nursing staff. The nurse note states the patient is sitting in the activity room with peers. His affect is bizarre to bright. he has minimal interaction with others. He is observed responding to internal stimuli. During my interview with the patient this morning, the patient is sitting in the dayroom. He is a/ox 2. His speech is tangential. 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 He has a colorful personality. He says his mood is "happy." He states "I'm still alive." He denies SI/HI. He denies hallucinations of any kind, and says "I have a doctor who gives me medicine. I used to hear voices." As I'm sitting with another patient, Mr. Arzola is gazing at me across the room. REVIEW OF SYSTEMS Constitutional: Negative for weight loss ENT: Negative for stridor Respiratory: Negative for cough or hemoptysis All other systems reviewed and are negative MSE Appearance: Awake. Dressed appropriately. Behavior: intrusive, cooperative, staring Mood: "Happy" Affect: congruent Thought Process: tangential Speech: Normal tone and pace Thought Content Suicidal: Denies Homicidal: Denies Hallucinations: Denies Delusions: Denies Consciousness: Alert Cognition/Memory: Limited Insight/Judgment: Limited Diagnoses: Schizoaffective Disorder Treatment Plan Due to the psychiatric conditions and treatment listed in the Assessment and Plan - the patient requires continued hospitalization. Will continue inpatient treatment to allow for medication adjustment and monitoring. Will continue q15 min safety checks. Will encourage the use of environmental modifications and non-pharmacologic approaches for the management of behavioral and psychological symptoms. Medication adjustment made today: Increased Seroquel 50mg po qam Will continue current psych medications Monitor for medication side effects. The patient will continue on medications for physical illnesses, and Hospitalist will closely monitor these Continue intensive physical and occupational therapies. Monitor patient's mood, sleep, appetite, and behavior closely. Encourage patient to participate in individual and group therapeutic sessions on the [facility]. Will provide a safe and therapeutic environment for patient. Estimated length of stay 3 days Medications and Allergies Allergies Allergy/AdvReac Type Severity Reaction Status Date / Time No Known Allergies Allergy Verified 08/21/19 04:09 Home Medications Medication Instructions Recorded Confirmed Last Taken Type Nitrofurantoin [place]/M-Cryst 100 mg PO Q12HR #13 capsule 08/21/19 08/22/19 Unknown Rx [Macrobid CAP] Active Meds: Active Medications Benztropine Mesylate (Cogentin) 0.5 mg PO BID [facility] Last Admin: 08/24/19 22:01 Dose: 0.5 mg Documented by: Fish Oil (Fish Oil) 2,000 mg PO BID [facility] Last Admin: 08/24/19 22:00 Dose: 2,000 mg Documented by: Haloperidol (Haldol) 0.5 mg PO BID [facility] Last Admin: 08/24/19 22:00 Dose: 0.5 mg Documented by: Haloperidol Lactate (Haldol) 5 mg IM Q6H PRN PRN Reason: Agitation Last Admin: 08/22/19 10:51 Dose: 5 mg Documented by: Lorazepam (Ativan) 2 mg IM Q6H PRN PRN Reason: Agitation Last Admin: 08/22/19 00:30 Dose: 2 mg Documented by: Quetiapine Fumarate (Seroquel) 200 mg PO QHS [facility] Last Admin: 08/24/19 22:01 Dose: 200 mg Documented by: Quetiapine Fumarate (Seroquel) 25 mg PO DAILY [facility] Last Admin: 08/24/19 10:30 Dose: 25 mg Documented by: Trazodone HCl (Desyrel) 50 mg PO QHS PRN PRN Reason: insomnia Results - Results Labs/Vitals: Laboratory Last Values WBC 7.8 K/mm3 (4.5-11.0) 08/22/19 11:37 RBC 3.71 M/mm3 (3.65-5.03) 08/22/19 11:37 Hgb 11.2 gm/dl (11.8-15.2) L 08/22/19 11:37 Hct 32.4 % (35.5-45.6) L 08/22/19 11:37 MCV 88 fl (84-94) 08/22/19 11:37 MCH 30 pg (28-32) 08/22/19 11:37 MCHC 34 % (32-34) 08/22/19 11:37 RDW 14.8 % (13.2-15.2) 08/22/19 11:37 Plt Count 374 K/mm3 (140-440) 08/22/19 11:37 Lymph % (Auto) 20.8 % (13.4-35.0) 08/22/19 11:37 [place] % (Auto) 9.8 % (0.0-7.3) H 08/22/19 11:37 Eos % (Auto) 4.3 % (0.0-4.3) 08/22/19 11:37 Baso % (Auto) 1.0 % (0.0-1.8) 08/22/19 11:37 Lymph # 1.6 K/mm3 (1.2-5.4) 08/22/19 11:37 [place] # 0.8 K/mm3 (0.0-0.8) 08/22/19 11:37 Eos # 0.3 K/mm3 (0.0-0.4) 08/22/19 11:37 Baso # 0.1 K/mm3 (0.0-0.1) 08/22/19 11:37 Seg Neutrophils % 64.1 % (40.0-70.0) 08/22/19 11:37 Seg Neutrophils # 5.0 K/mm3 (1.8-7.7) 08/22/19 11:37 Sodium 130 mmol/L (137-145) L 08/22/19 11:37 Potassium 4.3 mmol/L (3.6-5.0) 08/22/19 11:37 Chloride 97.4 mmol/L (98-107) L 08/22/19 11:37 Carbon Dioxide 21 mmol/L (22-30) L 08/22/19 11:37 Anion Gap 16 mmol/L 08/22/19 11:37 BUN 7 mg/dL (9-20) L 08/22/19 11:37 Creatinine 0.5 mg/dL (0.8-1.5) L 08/22/19 11:37 Estimated GFR > 60 ml/min 08/22/19 11:37 BUN/Creatinine Ratio 14 % 08/22/19 11:37 Glucose 94 mg/dL (75-100) 08/22/19 11:37 Hemoglobin A1c 5.5 % (4-6) 08/22/19 11:37 Calcium 8.4 mg/dL (8.4-10.2) 08/22/19 11:37 Total Bilirubin 0.50 mg/dL (0.1-1.2) 08/22/19 11:37 AST 110 units/L (5-40) H 08/22/19 11:37 ALT 54 units/L (7-56) 08/22/19 11:37 Alkaline Phosphatase 78 units/L (35-129) 08/22/19 11:37 Total Protein 5.6 g/dL (6.3-8.2) L 08/22/19 11:37 Albumin 3.7 g/dL (3.9-5) L 08/22/19 11:37 Albumin/Globulin Ratio 1.9 % 08/22/19 11:37 Triglycerides 65 mg/dL (2-149) 08/22/19 11:37 Cholesterol 92 mg/dL (50-199) 08/22/19 11:37 LDL Cholesterol Direct 39 mg/dL (50-130) L 08/22/19 11:37 HDL Cholesterol 43 mg/dL (40-59) 08/22/19 11:37 Cholesterol/HDL Ratio 2.13 % 08/22/19 11:37 Last Vital Signs Temp 98.8 F 08/24/19 20:02 Pulse 86 08/24/19 20:02 Resp 17 08/24/19 20:02 BP 143/102 08/24/19 20:02 Pulse Ox 100 08/24/19 20:02
[2019-08-25] MEDS: OMEGA-3 FATTY ACIDS/FISH OIL 1 GRAM CAP PO SCH ×2 (09:57→21:29)
[2019-08-25] MEDS: HALOPERIDOL 1 MG TAB PO SCH ×2 (09:57→21:30)
[2019-08-25] MEDS: BENZTROPINE 0.5 MG TAB PO SCH ×2 (09:57→21:30)
[2019-08-25] MEDS: QUEtiapine 25 MG TAB PO SCH (09:57)
[2019-08-25] MEDS: QUEtiapine 200 MG TAB PO SCH (21:31)
--- NOTE | 2019-08-26 09:24 | Progress Note ---
Subjective Date of service: 08/26/19 Principal diagnosis: Schizoaffective Disorder Subjective Comment: The patient's medical record was reviewed and the patient's progress was discussed with the nursing staff. The nurse note states ,Patient had 7 hours of sleep. He only woke up when he wanted to use his urinal. He is awake now, alert and oriented x3. He wanted to go to activity room to watch TV. Patient uses wheel chair , but able to self care. We will continue to monitor for safety. During my interview with the patient this morning, the patient is sitting in the dayroom in his wheel chair, the patient is alert oriented x2, he is dressed appropriately for the occasion. The patient reports that he is sleeping and eating well. He denies suicidal or homicidal ideation. The patient reports that his depression is better. The patient states, " my stump hurts a lot". The patient appeared responding to internal stimuli, the patient was noted mumbling and smiling to himself. Patient is noted with disorganized thoughts at times with minimal confusion. REVIEW OF SYSTEMS Constitutional: Negative for weight loss ENT: Negative for stridor Respiratory: Negative for cough or hemoptysis All other systems reviewed and are negative MSE Appearance: Awake. Dressed appropriately. Behavior: intrusive, cooperative, Mood: "good" Affect: congruent Thought Process: tangential Speech: Normal tone and pace Thought Content Suicidal: Denies Homicidal: Denies Hallucinations: Denies Delusions: Denies Consciousness: Alert Cognition/Memory: forgetful Insight/Judgment: Limited Diagnoses: Schizoaffective Disorder Treatment Plan Due to the psychiatric conditions and treatment listed in the Assessment and Plan - the patient requires continued hospitalization. Will continue inpatient treatment to allow for medication adjustment and monitoring. Will continue q15 min safety checks. Will encourage the use of environmental modifications and non-pharmacologic approaches for the management of behavioral and psychological symptoms. Medication adjustment made today: none Will continue current psych medications Monitor for medication side effects. The patient will continue on medications for physical illnesses, and Hospitalist will closely monitor these Continue intensive physical and occupational therapies. Monitor patient's mood, sleep, appetite, and behavior closely. Encourage patient to participate in individual and group therapeutic sessions on the [facility]. Will provide a safe and therapeutic environment for patient. Estimated length of stay 2 days Medications and Allergies Allergies Allergy/AdvReac Type Severity Reaction Status Date / Time No Known Allergies Allergy Verified 08/21/19 04:09 Home Medications Medication Instructions Recorded Confirmed Last Taken Type Nitrofurantoin [place]/M-Cryst 100 mg PO Q12HR #13 capsule 08/21/19 08/22/19 Unknown Rx [Macrobid CAP] Active Meds: Active Medications Benztropine Mesylate (Cogentin) 0.5 mg PO BID [facility] Last Admin: 08/25/19 21:30 Dose: 0.5 mg Documented by: Fish Oil (Fish Oil) 2,000 mg PO BID [facility] Last Admin: 08/25/19 21:29 Dose: 2,000 mg Documented by: Haloperidol (Haldol) 0.5 mg PO BID [facility] Last Admin: 08/25/19 21:30 Dose: 0.5 mg Documented by: Haloperidol Lactate (Haldol) 5 mg IM Q6H PRN PRN Reason: Agitation Last Admin: 08/22/19 10:51 Dose: 5 mg Documented by: Lorazepam (Ativan) 2 mg IM Q6H PRN PRN Reason: Agitation Last Admin: 08/22/19 00:30 Dose: 2 mg Documented by: Quetiapine Fumarate (Seroquel) 200 mg PO QHS [facility] Last Admin: 08/25/19 21:31 Dose: 200 mg Documented by: Quetiapine Fumarate (Seroquel) 50 mg PO DAILY [facility] Last Admin: 08/25/19 09:57 Dose: 50 mg Documented by: Trazodone HCl (Desyrel) 50 mg PO QHS PRN PRN Reason: insomnia Results - Results Labs/Vitals: Laboratory Last Values WBC 7.8 K/mm3 (4.5-11.0) 08/22/19 11:37 RBC 3.71 M/mm3 (3.65-5.03) 08/22/19 11:37 Hgb 11.2 gm/dl (11.8-15.2) L 08/22/19 11:37 Hct 32.4 % (35.5-45.6) L 08/22/19 11:37 MCV 88 fl (84-94) 08/22/19 11:37 MCH 30 pg (28-32) 08/22/19 11:37 MCHC 34 % (32-34) 08/22/19 11:37 RDW 14.8 % (13.2-15.2) 08/22/19 11:37 Plt Count 374 K/mm3 (140-440) 08/22/19 11:37 Lymph % (Auto) 20.8 % (13.4-35.0) 08/22/19 11:37 [place] % (Auto) 9.8 % (0.0-7.3) H 08/22/19 11:37 Eos % (Auto) 4.3 % (0.0-4.3) 08/22/19 11:37 Baso % (Auto) 1.0 % (0.0-1.8) 08/22/19 11:37 Lymph # 1.6 K/mm3 (1.2-5.4) 08/22/19 11:37 [place] # 0.8 K/mm3 (0.0-0.8) 08/22/19 11:37 Eos # 0.3 K/mm3 (0.0-0.4) 08/22/19 11:37 Baso # 0.1 K/mm3 (0.0-0.1) 08/22/19 11:37 Seg Neutrophils % 64.1 % (40.0-70.0) 08/22/19 11:37 Seg Neutrophils # 5.0 K/mm3 (1.8-7.7) 08/22/19 11:37 Sodium 130 mmol/L (137-145) L 08/22/19 11:37 Potassium 4.3 mmol/L (3.6-5.0) 08/22/19 11:37 Chloride 97.4 mmol/L (98-107) L 08/22/19 11:37 Carbon Dioxide 21 mmol/L (22-30) L 08/22/19 11:37 Anion Gap 16 mmol/L 08/22/19 11:37 BUN 7 mg/dL (9-20) L 08/22/19 11:37 Creatinine 0.5 mg/dL (0.8-1.5) L 08/22/19 11:37 Estimated GFR > 60 ml/min 08/22/19 11:37 BUN/Creatinine Ratio 14 % 08/22/19 11:37 Glucose 94 mg/dL (75-100) 08/22/19 11:37 Hemoglobin A1c 5.5 % (4-6) 08/22/19 11:37 Calcium 8.4 mg/dL (8.4-10.2) 08/22/19 11:37 Total Bilirubin 0.50 mg/dL (0.1-1.2) 08/22/19 11:37 AST 110 units/L (5-40) H 08/22/19 11:37 ALT 54 units/L (7-56) 08/22/19 11:37 Alkaline Phosphatase 78 units/L (35-129) 08/22/19 11:37 Total Protein 5.6 g/dL (6.3-8.2) L 08/22/19 11:37 Albumin 3.7 g/dL (3.9-5) L 08/22/19 11:37 Albumin/Globulin Ratio 1.9 % 08/22/19 11:37 Triglycerides 65 mg/dL (2-149) 08/22/19 11:37 Cholesterol 92 mg/dL (50-199) 08/22/19 11:37 LDL Cholesterol Direct 39 mg/dL (50-130) L 08/22/19 11:37 HDL Cholesterol 43 mg/dL (40-59) 08/22/19 11:37 Cholesterol/HDL Ratio 2.13 % 08/22/19 11:37 Last Vital Signs Temp 99.4 F 08/25/19 19:50 Pulse 109 H 08/25/19 19:50 Resp 20 08/25/19 19:50 BP 156/108 08/25/19 19:50 Pulse Ox 97 08/25/19 19:50
[2019-08-26] MEDS: HALOPERIDOL 1 MG TAB PO SCH ×2 (11:24→21:56)
[2019-08-26] MEDS: QUEtiapine 25 MG TAB PO SCH (11:24)
[2019-08-26] MEDS: OMEGA-3 FATTY ACIDS/FISH OIL 1 GRAM CAP PO SCH ×2 (11:25→21:56)
[2019-08-26] MEDS: BENZTROPINE 0.5 MG TAB PO SCH ×2 (11:25→21:56)
[2019-08-26] MEDS: QUEtiapine 200 MG TAB PO SCH (21:56)
--- NOTE | 2019-08-27 07:46 | Progress Note ---
Subjective Date of service: 08/27/19 Principal diagnosis: Schizoaffective Disorder Subjective Comment: The patient's medical record was reviewed and the patient's progress was discussed with the nursing staff. The nurse note states, Pt bilateral STEVEN observed walking to the bathroom on his stumps. "I walk!" he stated. Educated on fall precaution. He was assisted to the bathroom and back to the w/c. During my interview with the patient this morning, the patient is sitting in the dayroom in his wheel chair, the patient is alert oriented x2, he is dressed appropriately for the occasion. The patient reports that he is sleeping and eating well. He denies suicidal or homicidal ideation. The patient states, " i am here for my stump". Patient is noted with disorganized thoughts at times with minimal confusion. patient reports feeling unsafe going home, unable to care for self. Reason for continuing inpatient treatment: confusion/ stabilizing level of functioning/unable to care for self REVIEW OF SYSTEMS Constitutional: Negative for weight loss ENT: Negative for stridor Respiratory: Negative for cough or hemoptysis All other systems reviewed and are negative MSE Appearance: Awake. Dressed appropriately. Behavior: intrusive, cooperative, Mood: "ok" Affect: congruent Thought Process: tangential Speech: Normal tone and pace Thought Content Suicidal: Denies Homicidal: Denies Hallucinations: Denies Delusions: Denies Consciousness: Alert Cognition/Memory: forgetful Insight/Judgment: Limited Diagnoses: Schizoaffective Disorder Treatment Plan Due to the psychiatric conditions and treatment listed in the Assessment and Plan - the patient requires continued hospitalization. Will continue inpatient treatment to allow for medication adjustment and monitoring. Will continue q15 min safety checks. Will encourage the use of environmental modifications and non-pharmacologic approaches for the management of behavioral and psychological symptoms. Medication adjustment made today: none Will continue current psych medications Monitor for medication side effects. The patient will continue on medications for physical illnesses, and Hospitalist will closely monitor these Continue intensive physical and occupational therapies. Monitor patient's mood, sleep, appetite, and behavior closely. Encourage patient to participate in individual and group therapeutic sessions on the [facility]. Will provide a safe and therapeutic environment for patient. Estimated length of stay 2 days Medications and Allergies Allergies Allergy/AdvReac Type Severity Reaction Status Date / Time No Known Allergies Allergy Verified 08/21/19 04:09 Home Medications Medication Instructions Recorded Confirmed Last Taken Type Nitrofurantoin [place]/M-Cryst 100 mg PO Q12HR #13 capsule 08/21/19 08/22/19 Unknown Rx [Macrobid CAP] Active Meds: Active Medications Benztropine Mesylate (Cogentin) 0.5 mg PO BID [facility] Last Admin: 08/26/19 21:56 Dose: 0.5 mg Documented by: Fish Oil (Fish Oil) 2,000 mg PO BID [facility] Last Admin: 08/26/19 21:56 Dose: 2,000 mg Documented by: Haloperidol (Haldol) 0.5 mg PO BID [facility] Last Admin: 08/26/19 21:56 Dose: 0.5 mg Documented by: Haloperidol Lactate (Haldol) 5 mg IM Q6H PRN PRN Reason: Agitation Last Admin: 08/22/19 10:51 Dose: 5 mg Documented by: Lorazepam (Ativan) 2 mg IM Q6H PRN PRN Reason: Agitation Last Admin: 08/22/19 00:30 Dose: 2 mg Documented by: Quetiapine Fumarate (Seroquel) 200 mg PO QHS [facility] Last Admin: 08/26/19 21:56 Dose: 200 mg Documented by: Quetiapine Fumarate (Seroquel) 50 mg PO DAILY [facility] Last Admin: 08/26/19 11:24 Dose: 50 mg Documented by: Trazodone HCl (Desyrel) 50 mg PO QHS PRN PRN Reason: insomnia Results - Results Labs/Vitals: Laboratory Last Values WBC 7.8 K/mm3 (4.5-11.0) 08/22/19 11:37 RBC 3.71 M/mm3 (3.65-5.03) 08/22/19 11:37 Hgb 11.2 gm/dl (11.8-15.2) L 08/22/19 11:37 Hct 32.4 % (35.5-45.6) L 08/22/19 11:37 MCV 88 fl (84-94) 08/22/19 11:37 MCH 30 pg (28-32) 08/22/19 11:37 MCHC 34 % (32-34) 08/22/19 11:37 RDW 14.8 % (13.2-15.2) 08/22/19 11:37 Plt Count 374 K/mm3 (140-440) 08/22/19 11:37 Lymph % (Auto) 20.8 % (13.4-35.0) 08/22/19 11:37 [place] % (Auto) 9.8 % (0.0-7.3) H 08/22/19 11:37 Eos % (Auto) 4.3 % (0.0-4.3) 08/22/19 11:37 Baso % (Auto) 1.0 % (0.0-1.8) 08/22/19 11:37 Lymph # 1.6 K/mm3 (1.2-5.4) 08/22/19 11:37 [place] # 0.8 K/mm3 (0.0-0.8) 08/22/19 11:37 Eos # 0.3 K/mm3 (0.0-0.4) 08/22/19 11:37 Baso # 0.1 K/mm3 (0.0-0.1) 08/22/19 11:37 Seg Neutrophils % 64.1 % (40.0-70.0) 08/22/19 11:37 Seg Neutrophils # 5.0 K/mm3 (1.8-7.7) 08/22/19 11:37 Sodium 130 mmol/L (137-145) L 08/22/19 11:37 Potassium 4.3 mmol/L (3.6-5.0) 08/22/19 11:37 Chloride 97.4 mmol/L (98-107) L 08/22/19 11:37 Carbon Dioxide 21 mmol/L (22-30) L 08/22/19 11:37 Anion Gap 16 mmol/L 08/22/19 11:37 BUN 7 mg/dL (9-20) L 08/22/19 11:37 Creatinine 0.5 mg/dL (0.8-1.5) L 08/22/19 11:37 Estimated GFR > 60 ml/min 08/22/19 11:37 BUN/Creatinine Ratio 14 % 08/22/19 11:37 Glucose 94 mg/dL (75-100) 08/22/19 11:37 Hemoglobin A1c 5.5 % (4-6) 08/22/19 11:37 Calcium 8.4 mg/dL (8.4-10.2) 08/22/19 11:37 Total Bilirubin 0.50 mg/dL (0.1-1.2) 08/22/19 11:37 AST 110 units/L (5-40) H 08/22/19 11:37 ALT 54 units/L (7-56) 08/22/19 11:37 Alkaline Phosphatase 78 units/L (35-129) 08/22/19 11:37 Total Protein 5.6 g/dL (6.3-8.2) L 08/22/19 11:37 Albumin 3.7 g/dL (3.9-5) L 08/22/19 11:37 Albumin/Globulin Ratio 1.9 % 08/22/19 11:37 Triglycerides 65 mg/dL (2-149) 08/22/19 11:37 Cholesterol 92 mg/dL (50-199) 08/22/19 11:37 LDL Cholesterol Direct 39 mg/dL (50-130) L 08/22/19 11:37 HDL Cholesterol 43 mg/dL (40-59) 08/22/19 11:37 Cholesterol/HDL Ratio 2.13 % 08/22/19 11:37 Last Vital Signs Temp 98.1 F 08/26/19 22:00 Pulse 65 08/26/19 22:00 Resp 18 08/26/19 22:00 BP 136/92 08/26/19 22:00 Pulse Ox 95 08/26/19 22:00
[2019-08-27] MEDS: HALOPERIDOL 1 MG TAB PO SCH ×2 (09:47→21:38)
[2019-08-27] MEDS: QUEtiapine 25 MG TAB PO SCH (09:48)
[2019-08-27] MEDS: OMEGA-3 FATTY ACIDS/FISH OIL 1 GRAM CAP PO SCH ×2 (09:48→21:39)
[2019-08-27] MEDS: BENZTROPINE 0.5 MG TAB PO SCH ×2 (20:41→21:39)
[2019-08-27] MEDS: QUEtiapine 200 MG TAB PO SCH (21:39)
[2019-08-28 00:17] VITALS: BP 131/85
--- NOTE | 2019-08-28 08:11 | Discharge Summary ---
Providers - Providers Date of Admission: 08/21/19 23:07 Date of discharge: 08/28/19 Attending physician: PABLITO COLON MD 08/21/19 18:02 Consult to Physician [CONS] Routine Comment: Consulting Provider: MILAGRO AMAYA Physician Instructions: Reason For Exam: Medical management of gerjerodych patient 08/25/19 Consult to Wound/ET Nurse [CONS] Routine Reason For Exam: wound eval Primary care physician: CHIEF OPHTHALMIC TECHNICIAN Hospitalization Condition: Stable Disposition: DC/[place]-03 SNF W [facility] Allergies/Adverse Reactions: Allergies No Known Allergies Allergy (Verified 08/21/19 04:09) Vital Signs: Last Vital Signs Temp 97.5 F L 08/27/19 22:00 Pulse 109 H 08/27/19 22:00 Resp 18 08/27/19 22:00 BP 131/85 08/27/19 22:00 Pulse Ox 100 08/27/19 22:00 Last Lab: Laboratory Last Values WBC 7.8 K/mm3 (4.5-11.0) 08/22/19 11:37 RBC 3.71 M/mm3 (3.65-5.03) 08/22/19 11:37 Hgb 11.2 gm/dl (11.8-15.2) L 08/22/19 11:37 Hct 32.4 % (35.5-45.6) L 08/22/19 11:37 MCV 88 fl (84-94) 08/22/19 11:37 MCH 30 pg (28-32) 08/22/19 11:37 MCHC 34 % (32-34) 08/22/19 11:37 RDW 14.8 % (13.2-15.2) 08/22/19 11:37 Plt Count 374 K/mm3 (140-440) 08/22/19 11:37 Lymph % (Auto) 20.8 % (13.4-35.0) 08/22/19 11:37 [place] % (Auto) 9.8 % (0.0-7.3) H 08/22/19 11:37 Eos % (Auto) 4.3 % (0.0-4.3) 08/22/19 11:37 Baso % (Auto) 1.0 % (0.0-1.8) 08/22/19 11:37 Lymph # 1.6 K/mm3 (1.2-5.4) 08/22/19 11:37 [place] # 0.8 K/mm3 (0.0-0.8) 08/22/19 11:37 Eos # 0.3 K/mm3 (0.0-0.4) 08/22/19 11:37 Baso # 0.1 K/mm3 (0.0-0.1) 08/22/19 11:37 Seg Neutrophils % 64.1 % (40.0-70.0) 08/22/19 11:37 Seg Neutrophils # 5.0 K/mm3 (1.8-7.7) 08/22/19 11:37 Sodium 130 mmol/L (137-145) L 08/22/19 11:37 Potassium 4.3 mmol/L (3.6-5.0) 08/22/19 11:37 Chloride 97.4 mmol/L (98-107) L 08/22/19 11:37 Carbon Dioxide 21 mmol/L (22-30) L 08/22/19 11:37 Anion Gap 16 mmol/L 08/22/19 11:37 BUN 7 mg/dL (9-20) L 08/22/19 11:37 Creatinine 0.5 mg/dL (0.8-1.5) L 08/22/19 11:37 Estimated GFR > 60 ml/min 08/22/19 11:37 BUN/Creatinine Ratio 14 % 08/22/19 11:37 Glucose 94 mg/dL (75-100) 08/22/19 11:37 Hemoglobin A1c 5.5 % (4-6) 08/22/19 11:37 Calcium 8.4 mg/dL (8.4-10.2) 08/22/19 11:37 Total Bilirubin 0.50 mg/dL (0.1-1.2) 08/22/19 11:37 AST 110 units/L (5-40) H 08/22/19 11:37 ALT 54 units/L (7-56) 08/22/19 11:37 Alkaline Phosphatase 78 units/L (35-129) 08/22/19 11:37 Total Protein 5.6 g/dL (6.3-8.2) L 08/22/19 11:37 Albumin 3.7 g/dL (3.9-5) L 08/22/19 11:37 Albumin/Globulin Ratio 1.9 % 08/22/19 11:37 Triglycerides 65 mg/dL (2-149) 08/22/19 11:37 Cholesterol 92 mg/dL (50-199) 08/22/19 11:37 LDL Cholesterol Direct 39 mg/dL (50-130) L 08/22/19 11:37 HDL Cholesterol 43 mg/dL (40-59) 08/22/19 11:37 Cholesterol/HDL Ratio 2.13 % 08/22/19 11:37 Core Measure Documentation - Palliative Care Palliative Care/ Comfort Measures: Not Applicable - Core Measures Any of the following diagnoses?: none Exam - Constitutional Vitals: Temp Pulse Resp BP Pulse Ox 97.5 F L 109 H 18 131/85 100 08/27/19 22:00 08/27/19 22:00 08/27/19 22:00 08/27/19 22:00 08/27/19 22:00 - EENT Eyes: Present: PERRL, EOM intact ENT: hearing intact, clear oral mucosa - Neck Neck: Present: supple, normal ROM - Respiratory Respiratory effort: normal - Abdominal Male genitourinary: Present: normal - Integumentary Integumentary: Present: clear, warm, dry Plan Care Plan Goals: Maintain good and stable mental health Plan of Treatment: The patient should be complaint with medications, not use drugs, and not drink alcohol. The patient understands that if suicidal, homicidal or endangering feelings arise he should seek assistance including but not limited to calling 911, the crisis hotline, and the emergency room. Follow up with outpatient psychiatry and primary doctor in 7 to 14 days Health Concerns: htn, bka, anemia Follow up with: PRIMARY CARE, [Primary Care Provider] - 7 Days Prescriptions: QUEtiapine [SEROquel] 200 mg PO QHS #30 tablet Benztropine [Cogentin] 0.5 mg PO BID #60 tablet [place]-3 Fatty Acids/Fish Oil [Fish Oil] 2,000 mg PO BID #30 capsule haloperidoL [Haldol] 0.5 mg PO BID #60 tablet QUEtiapine [SEROquel] 50 mg PO DAILY #30 tablet
[2019-08-28] MEDS: OMEGA-3 FATTY ACIDS/FISH OIL 1 GRAM CAP PO SCH (09:19)
[2019-08-28] MEDS: HALOPERIDOL 1 MG TAB PO SCH (09:20)
[2019-08-28] MEDS: BENZTROPINE 0.5 MG TAB PO SCH (09:20)
[2019-08-28] MEDS: QUEtiapine 25 MG TAB PO SCH (09:20)
== END 2019-08-28 16:45 | disposition home or self-care (01) | DRG 885 ==
LOC: UNDOADMIN 17:28 → 3A 17:28 → 5A 23:07
PROVIDERS: ADMIT Psychiatry & Neurology Psychiatry; ATTEND Psychiatry & Neurology Psychiatry
DX: F25.0 Schizoaffective disorder, bipolar type (principal); E87.1 Hypo-osmolality and hyponatremia; J44.9 Chronic obstructive pulmonary disease, unspecified; I10 Essential (primary) hypertension; D63.8 Anemia in other chronic diseases classified elsewhere; Z89.512 Acquired absence of left leg below knee; Z89.511 Acquired absence of right leg below knee
CPT/HCPCS: 36415; 80053; 80061; 83036; 85025; G0378; J1630; J2060